=== PATIENT | female | born 2000 | race Two or more races ===

== ENCOUNTER 2021-12-20 02:39 | Emergency (ER) | payer MEDICAID ==
[~2021-12-20] VITALS: Ht 177.8 cm; Wt 49.9 kg
--- NOTE | 2021-12-20 02:50 | NUR ---
Dr Pretty at bedside for MSE
[2021-12-20] MEDS ORDERED: MORPHINE SULFATE 4 MG/1 ML DISP.SYRIN ONE (03:11)
[2021-12-20] MEDS ORDERED: MORPHINE SULFATE 4 MG/1 ML DISP.SYRIN IM ONE (03:15)
--- NOTE | 2021-12-20 03:30 | NUR ---
Dr. Pretty wanted to give Morphine 4 mg first then 2 mg if pt's still in pain. Pt verbalizes relief and refuses another dose of morphine.
--- NOTE | 2021-12-20 04:40 | NUR ---
Pt able to use her phone now and able to walk to the bathroom without assistance. Pt was given 1.5 bags of saline on each eye via Mj lens. Pt verbalizes relief at this time.
[2021-12-20] MEDS ORDERED: TETRACAINE HCL 0.5% OPHT DROP 2 ML BOTTLE ONE (05:18)
[2021-12-20] MEDS ORDERED: FLUORESCEIN SODIUM 1 MG STRIP ONE (05:18)
[2021-12-20] MEDS ORDERED: TETRACAINE HCL 0.5% OPHT DROP 2 ML BOTTLE OP ONE (05:30)
[2021-12-20] MEDS ORDERED: FLUORESCEIN SODIUM 1 MG STRIP OP ONE (05:30)
[2021-12-20] MEDS ORDERED: ERYT3.5O24 EACHEYE (05:57)
--- NOTE | 2021-12-20 05:59 | NUR ---
Patient discharged to home in stable condition. Written and verbal after care instructions given. Patient verbalizes understanding of instructions. Stressed follow up or return to ER for worsening s/s.
[2021-12-20 06:00] VITALS: BP 145/76
== END 2021-12-20 06:00 | disposition home or self-care (01) ==
LOC: ER 03:30
DX: T65.893A Toxic effect of other specified substances, assault, initial encounter (principal); H10.213 Acute toxic conjunctivitis, bilateral; Y92.511 Restaurant or cafe as the place of occurrence of the external cause
CPT/HCPCS: 99283; 96372; J2270; A4663; J7040